=== PATIENT | female | born 1945 | race Caucasian/White ===

== ENCOUNTER 2020-11-20 02:50 | Emergency (ER) | payer MEDICARE, OTHER ==
[~2020-11-20 02:50] MED LIST: ALBUTEROL2.5 MG/3 M INH; AUGMENTIN 875-1 EACH PO; FLONASE 0.05% N16 GM; IPRAT-ALBUT 0.5-3 ML INH; PULMICORT0.25 MG/1 INH
[2020-11-20 04:19] LABS: HEMOGLOBIN 17.2 gm/dl (12.3-15.3); RED BLOOD COUNT 5.65 M/UL (4.00-5.10); WHITE BLOOD COUNT 9.6 K/UL (4.5-11.0)
[2020-11-20 04:40] LABS: BUN/CREATININE RATIO 25 (0-10)
== END 2020-11-20 08:00 | disposition left against medical advice (07) ==
LOC: ER1 02:50 → CDU 05:41
PROVIDERS: Physician Assistant
DX: J44.0 Chronic obstructive pulmonary disease with (acute) lower respiratory infection (principal); J18.9 Pneumonia, unspecified organism; J44.1 Chronic obstructive pulmonary disease with (acute) exacerbation; J96.21 Acute and chronic respiratory failure with hypoxia; Z20.822 Contact with and (suspected) exposure to COVID-19; Z90.49 Acquired absence of other specified parts of digestive tract; F17.210 Nicotine dependence, cigarettes, uncomplicated; Z88.1 Allergy status to other antibiotic agents; Z88.8 Allergy status to other drugs, medicaments and biological substances
CPT/HCPCS: 0240U; 71045; 80053; 81001; 82550; 82553; 82803; 83605; 83874; 84484; 85025; 87040; 93005; 94664; 94760; 96374; 99285

== ENCOUNTER 2020-12-02 15:00 | Inpatient (IN) | payer MEDICARE, OTHER ==
[~2020-12-02] VITALS: Ht 157.5 cm; Wt 66.7 kg
[2020-12-02 17:09] LABS: HEMOGLOBIN 17.4 gm/dl (12.3-15.3); RED BLOOD COUNT 5.72 M/UL (4.00-5.10); WHITE BLOOD COUNT 8.1 K/UL (4.5-11.0)
[2020-12-02 18:25] LABS: BUN/CREATININE RATIO 23 (0-10)
[2020-12-02] MEDS ORDERED: ZINC30 MG PO (20:47)
[2020-12-02] MEDS ORDERED: VITAMIN D 40400 UNIT PO (20:47)
[2020-12-02] MEDS ORDERED: ASPIRIN81 MG PO (20:48)
[2020-12-03 04:43] LABS: HEMOGLOBIN 16.2 gm/dl (12.3-15.3); RED BLOOD COUNT 5.37 M/UL (4.00-5.10); WHITE BLOOD COUNT 8.1 K/UL (4.5-11.0)
[2020-12-03 05:14] LABS: BUN/CREATININE RATIO 28 (0-10)
[2020-12-04] MEDS ORDERED: FLONASE 0.05% N16 GM (09:16)
== END 2020-12-04 10:15 | disposition home or self-care (01) | DRG 189 ==
LOC: ER1 15:00 → M/S 18:38 → CDU 18:38 → M/S 19:41
PROVIDERS: Emergency Medicine; ADMIT Internal Medicine
DX: J96.21 Acute and chronic respiratory failure with hypoxia (principal); J44.1 Chronic obstructive pulmonary disease with (acute) exacerbation; J44.0 Chronic obstructive pulmonary disease with (acute) lower respiratory infection; F17.210 Nicotine dependence, cigarettes, uncomplicated; J20.9 Acute bronchitis, unspecified; J30.9 Allergic rhinitis, unspecified; I71.4 Abdominal aortic aneurysm, without rupture; Z20.822 Contact with and (suspected) exposure to COVID-19; Z90.49 Acquired absence of other specified parts of digestive tract
CPT/HCPCS: 36415; 36600; 71045; 80053; 82550; 82553; 82803; 83605; 83690; 83735; 83874; 83880; 84100; 84439; 84443; 84484; 85025; 85610; 85730; 87040; 93005; 94640; 94664; 94760; 99285; J1100; J1650; J7070; U0002

== ENCOUNTER 2021-03-01 18:43 | Emergency (ER) | payer MEDICARE, OTHER ==
[~2021-03-01 18:43] MED LIST changes: +ASPIRIN81 MG PO; +VITAMIN D 40400 UNIT PO; +ZINC30 MG PO
== END 2021-03-01 19:15 | disposition left against medical advice (07) ==
LOC: ER1 18:43
DX: Z53.21 Procedure and treatment not carried out due to patient leaving prior to being seen by health care provider (principal)

== ENCOUNTER 2021-04-25 11:38 | Inpatient (IN) | payer MEDICARE, OTHER ==
[~2021-04-25] VITALS: Ht 157.5 cm; Wt 65.3 kg
[~2021-04-25 11:38] MED LIST changes: -IPRAT-ALBUT 0.5-3 ML INH
[2021-04-25 12:57] LABS: HEMOGLOBIN 17.9 gm/dl (12.3-15.3); RED BLOOD COUNT 5.93 M/UL (4.00-5.10); WHITE BLOOD COUNT 8.3 K/UL (4.5-11.0)
[2021-04-25 13:19] LABS: BUN/CREATININE RATIO 15 (0-10)
--- NOTE | 2021-04-25 19:50 | NUR ---
CALLED DR TUCKER TO NOTIFY OF CONSULT. HE IS AWARE AND STATES HE WILL SEE PT.
[2021-04-25] MEDS ORDERED: IPRAT-ALBUT 0.5-3 ML NEB (20:24)
[2021-04-26 02:56] LABS: HEMOGLOBIN 16.6 gm/dl (12.3-15.3); RED BLOOD COUNT 5.58 M/UL (4.00-5.10); WHITE BLOOD COUNT 7.7 K/UL (4.5-11.0)
[2021-04-26 03:47] LABS: BUN/CREATININE RATIO 19 (0-10)
--- NOTE | 2021-04-26 08:54 | NUR ---
04/26/21 0812 PT REQUEST TO GO "OUTSIDE TO SMOKE" EXPLAINED RISKS OF SMOKING, ALSO REMINDED THAT PT CAME TO HOSPITAL WITH SOA, COPD AND PNA. PT IS ALERT/ORIENTED, VOICES UNDERSTANDING. EXPLAINED PT WOULD HAVE NO OXYGEN IT IS A FIRE RISK SMOKING WITH O2 ON. PT STATED SHE UNDERSTOOD ALL THE RISKS THAT WERE ASSOCIATED WITH SMOKING AND HER "BREATHING" PROBLEMS.
--- NOTE | 2021-04-26 09:08 | NUR ---
04/26/21 0908 PT OFF CADIAC MONITOR AND OXYGEN, STATES SHE IS GOING TO SMOKE. REMINDED AND RE-EDUCATED PT AND SON RISKS OF SMOKING ETC. PT STATES "I KNOW THE RISKS" SON STATED "I KNOW, WE HAVE DISCUSSED IT, BUT SHE WANTS TO GO SMOKE" EXPLAINED RISKS OF OXYGEN DECREASING, INCREASED SOA ETC. BOTH VOICES UNDERSTANDING. MD IS AWARE, TELEMETRY IS AWARE OF PT OFF MONITOR.
--- NOTE | 2021-04-26 11:35 | NUR ---
04/26/[address] TUCKER (PULMONOLOGY) NOTIFIED OF CONSULT. UPDATED ON PT STATUS ETC.
--- NOTE | 2021-04-26 12:57 | NUR ---
04/26/21 1257 PT GOING OUTSIDE TO SMOKE, EXPLAINED RISKS ONCE AGAIN. PATIENT IS ALERT/ORIENTED AND VOICES UNDERSTANDING OF RISKS. 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 SON [employer] AND IS AWARE OF RISKS WELL. BOTH VOICE UNDERSTANDING. MD IS AWARE OF NON COMPLIANCE.
[2021-04-27 03:53] LABS: BUN/CREATININE RATIO 26 (0-10)
--- NOTE | 2021-04-27 06:26 | NUR ---
PATIENT CALLED ME TO THE ROOM. STATES THAT SHE THINKS SHE IS HAVING AN ALLERGIC REACTION TO THE MERREM IV ABX. SHE STATES, " I JUST DONT FEEL GOOD AT ALL SOMETHING ISNT RIGHT. IM ITCHING ON MY BELLY AND MY HEAD FEELS WEIRD." VITALS ARE FOLLOWS. BP 138/91 HR 87 RR18 02 92%. NO VISIBLE RED STREAKS OR PROBLEMS NOTED WITH HER IV. STOPPED MERREM AND NOTIFIED DR PEACOCK. PT IS CURRENTLY REFUSING TO TAKE STEROIDS OR BENADRYL AND STATES, " I JUST WILL WAIT AND SEE IF THIS WEARS OFF AND I FEEL BETTER."
--- NOTE | 2021-04-27 09:07 | NUR ---
04/27/21 0840 PT OUT TO SMOKE, ONCE AGAIN EDUCATED PT ON RISKS OF SMOKING ETC. REMINDED AND RE-EDUCATED ON OXYGEN USE, SOA, COPD ETC. PT IS ALERT/ORIENTED, VOICES UNDERSTANDING. SON ALSO AT [employer] WHOM IS TRANSPORTING PT IN W/C TO SMOKE.
--- NOTE | 2021-04-27 09:09 | NUR ---
04/27/21 0909 PT SON STATED HE "TURNED MOM'S OXYGEN DOWN THIS MORNING" EXPLAINED TO PT AND SON THE IMPORTANCE OF NOT ADJUSTING MEDICAL EQUIPMENT, EXPLAINED THAT STAFF WOULD ADJUST OXYGEN SETTINGS PT TOLERATES. OXYGEN IS AT 6L/NC IT WAS ON AM ASSESSMENT.
--- NOTE | 2021-04-27 09:29 | NUR ---
04/27/21 0968 PT C/O NAUSEA AND POSSIBLE ALLERGIC REACTION TO MERREM, STATES SHE FEELS IF HER LIPS WERE SWOLLEN. PT ASSESSED, NO FACIAL EDEMA NOTED. PT WITH NO CHANGE IN RESP STATUS, REMAINS ON 4L/NC WITH O2 SAT 90 WHILE TALKING. PT NOTED TO HAVE NO RED/RASHY AREAS ON BODY. DOES HAVE A SMALL RED AREA TO ABD WHICH IS APPROX 2CM ROUND, NO RASH, NO HIVES ECT ELSEWHERE. PT STATES SHE HAD A HEADACHE, EXPLAINED THAT I WOULD NOTIFY THE PHYSICIAN AND GET HER SOMETHING. SHE QUICKLY DECLINED, STATES "NO, THATS OK, ITS EASING OFF NOW" EXPLAINED NAUSEA WAS A SE OF MOST ANTIBIOTICS, ALSO REMINDED THAT PT STATED SHE IS HAVING SINUS DRAINAGE AND THAT COULD BE CONTRIBUTING TO SOME NAUSEA WELL. NOTIFIED DR JOHNSON OF "POSSIBLE ALLERGIC REACTION" MERREM WAS PUT ON HOLD PER DR STRICKLAND. WILL FOLLOW UP WITH MD GRAHAM RODRIGUEZ AND NAUSEA.
--- NOTE | 2021-04-27 10:55 | NUR ---
04/27/21 1055 PATIENT LEAVING UNIT TO GO OUTSIDE AND SMOKE, PATIENT VOICES RISKS OF SMOKING AND RESP STATUS. PORTABLE TELE AND PULSE OX ON PT, EXPLAINED THAT IF THEY WERE TOO FAR FROM FACILITY THAT WE COULDN'T READ HR AND OXYGEN SAT. VOICES UNDERSTANDING. SON WITH PT, TRANSPORTING HER VIA W/C
--- NOTE | 2021-04-27 16:46 | NUR ---
04/27/21 1640 CALLED TO PT ROOM PER RT, PATIENT REQUESTING THAT MERREM BE STOPPED, STATES "IT HAS MADE MY SINUSES DRAIN INTO MY THROAT AND I AM SMOTHERING TO " PATIENT WITH OXYGEN OFF, O2 SENSOR UNPLUGGED. EXPLAINED THE IMPORTANCE OF WEARING HER OXYGEN, ONCE OXYGEN SAT MONITOR WAS PLUGGED BACK UP SATURATION WS 89%. NO CHANGE NOTED WITH RESP STATUS WITH ASSESSMENT. PATIENT CONT WITH COUGH, COARSE LUNG SOUNDS. MERREM STOPPED PER PT REQUEST. DR STRICKLAND NOTIFIED OF PT COMPLAINTS AND REQUEST TO STOP IV ABT. EXPLAINED THAT RES STATUS WAS UNCHANGED AND THAT PATIENT HAD REMOVED OXYGEN WHICH WAS REAPPLIED WITH CURRENT OXYGEN SAT AT 89% ON 4L/NC. PATIENT IS ALERT/ORIENTED, EDUCATED ON RISKS OF NOT USING OXYGEN, WELL IMPORTANCE OF ABT. VOICES UNDERSTANDING.
--- NOTE | 2021-04-27 16:56 | NUR ---
04/27/21 1657 PT OFF FLOOR TO SMOKE. NO FURTHER C/O SOA.
--- NOTE | 2021-04-28 00:18 | NUR ---
AT 2330 PT IV WENT BAD DUE TO INFILTRATION AND THE NURSE WENT TO RESTART THE IV AND THE FAMILY REFUSED TO LET HER BE STUCK. FAMILY REQUESTED HER NOT TO BE STUCK TIL IN THE MORNING. WAS MADE AWARE.
--- NOTE | 2021-04-28 00:21 | NUR ---
RESPIRATORY WENT IN TO DO A BREATHING TREATMENT AND THE FAMILY TOLD THE STATOR PLATE WASHER NOT TO DO THE BREATHING TREATMENT. RT SAID THE PT WAS NOT IN ANY DISTRESS AND WILL CHECK ON PT AT 0400 FOR THEIR NEXT TREATMENT.
--- NOTE | 2021-04-28 04:09 | NUR ---
AT 0330 I D/C HER IV DUE TO PAIN. I EXPLAINED TO HER THAT SHE NEEDED A NEW ONE FOR EMERGENCY PURPOSES AND SHE AND HER SON STATED THAT SHE WOULD WAIT TIL MORNING DUE TO THE FACT OF HER GETTING A MIDLINE PLACED. NO MORNING ANTIBIOTICS CAN BE GIVEN BECAUSE OF NO IV ACCESS AND SHE REFUSED THEM WELL. MD AGUILAR.
--- NOTE | 2021-04-28 04:12 | NUR ---
AT 0406 THE RT WENT IN TO GIVE A BREATHING TREATMENT TO THE PT AND THE SON REFUSED THE TREATMENT BY STATING ACCORDING TO THE RT THAT HE WANTS HER TO REST. RT STATES NO PT DISTRESS
[2021-04-28 07:12] LABS: BUN/CREATININE RATIO 23 (0-10)
--- NOTE | 2021-04-28 15:42 | NUR ---
20G X 10CM MIDLINE, RIGHT BRACHIAL VEIN. ASPIRATES AND FLUSHES WELL.
[2021-04-28] MEDS ORDERED: FLONASE 0.05% N16 GM (15:51)
[2021-04-28] MEDS ORDERED: DEXAMETHASONE0.5 M1 PO (15:51)
[2021-04-28] MEDS ORDERED: BUDESONIDE0.5 MG/2 M NEB (15:51)
--- NOTE | 2021-04-28 16:51 | NUR ---
REPORT CALL WAS [facility].SEVERAL MORE ATTEMPTS TO CALL REPORT HAVE BEEN MADE.
== END 2021-04-28 16:33 | disposition home health service (06) | DRG 193 ==
LOC: ER1 11:38 → MED SURG 4 14:10 → CDU 14:10 → PROG CARE 19:30 → MED SURG 4 04-27 21:40
PROVIDERS: Emergency Medicine; Internal Medicine Pulmonary Disease; Physician Assistant Medical; ADMIT Internal Medicine
DX: J18.9 Pneumonia, unspecified organism (principal); J96.21 Acute and chronic respiratory failure with hypoxia; Z20.822 Contact with and (suspected) exposure to COVID-19; J20.9 Acute bronchitis, unspecified; J43.9 Emphysema, unspecified; I71.4 Abdominal aortic aneurysm, without rupture; F17.210 Nicotine dependence, cigarettes, uncomplicated; Z88.1 Allergy status to other antibiotic agents; Z88.0 Allergy status to penicillin; Z90.49 Acquired absence of other specified parts of digestive tract; Z88.8 Allergy status to other drugs, medicaments and biological substances; Z99.81 Dependence on supplemental oxygen
CPT/HCPCS: 36415; 36600; 71045; 80048; 80053; 81001; 82550; 82553; 82803; 83605; 83735; 83874; 83880; 84439; 84443; 84484; 85025; 85027; 87040; 93005; 94640; 94664; 94760; 99285; C1751; J0696; J1650; J2185; J7040; J7070; U0002

== ENCOUNTER 2021-09-14 03:31 | Inpatient (IN) | payer MEDICARE, OTHER ==
[~2021-09-14] VITALS: Ht 157.5 cm; Wt 63.5 kg
[~2021-09-14 03:31] MED LIST changes: +BUDESONIDE0.5 MG/2 M NEB; +DEXAMETHASONE0.5 M1 PO; +IPRAT-ALBUT 0.5-3 ML NEB
[2021-09-14 04:20] LABS: HEMOGLOBIN 16.9 gm/dl (12.3-15.3); RED BLOOD COUNT 5.58 M/UL (4.00-5.10); WHITE BLOOD COUNT 10.3 K/UL (4.5-11.0)
[2021-09-14 04:52] LABS: BUN/CREATININE RATIO 26 (0-10)
[2021-09-14] MEDS ORDERED: VITAMIN D325 MCG PO (09:43)
[2021-09-14] MEDS ORDERED: ASPIRIN EC81 MG PO (09:44)
[2021-09-15 03:22] LABS: HEMOGLOBIN 16.5 gm/dl (12.3-15.3); RED BLOOD COUNT 5.47 M/UL (4.00-5.10); WHITE BLOOD COUNT 10.1 K/UL (4.5-11.0)
[2021-09-16 05:03] LABS: HEMOGLOBIN 16.3 gm/dl (12.3-15.3); RED BLOOD COUNT 5.48 M/UL (4.00-5.10); WHITE BLOOD COUNT 8.7 K/UL (4.5-11.0)
--- NOTE | 2021-09-16 10:10 | NUR ---
PATIENT HAS REFUSED HER SOLUMEDROL, MUCINEX, AND DOXYCYCLINE THIS MORNING, I TOLD FANY WHO SPOKE WITH HER ALSO AND SAID SHE WAS THEN AGREEING TO THESE MEDS. I WENT TO GIVE HER THESE MEDICATIONS ALONG WITH HER MEDROL DOSE PACK AND SHE AGAIN REFUSED THEM. SHE HAS BEEN OUTSIDE TO SMOKE TWICE THIS MORNING AND I HAD THE CONVERSATION WITH HER ABOUT SMOKING AND HOW IT WILL WORSEN HER BRONCHITIS AFTER THE FIRST TIME SHE WENT TO SMOKE.
[2021-09-16] MEDS ORDERED: HUMIBID LA TAB600 MG PO (15:07)
[2021-09-16] MEDS ORDERED: AVIDOXY100 MG PO (15:07)
[2021-09-16] MEDS ORDERED: PROTONIX 40 MG40 M1 PO (15:07)
--- NOTE | 2021-09-16 16:07 | NUR ---
PATIENT WAS READY TO DC HOME, SHE IS ON HOME O2 BUT DID NOT BRING A TANK WITH HER. I CALLED [employer] [facility] [employer] WHO CALLED HER O2 SUPPLIER IN [facility], THEY SAID THEY WOULD BRING HER A TANK. I INFORMED THE PATIENT SHE WOULD HAVE TO WAIT SHE COULD NOT GO THAT LONG WITHOUT HER OXYGEN.
== END 2021-09-16 16:50 | disposition home or self-care (01) | DRG 193 ==
LOC: ER1 03:31 → M/S 08:29 → CDU 08:29 → M/S 11:39
PROVIDERS: Physician Assistant; Physician Assistant Medical; Student in an Organized Health Care Education/Training Program; ADMIT Internal Medicine
DX: J18.9 Pneumonia, unspecified organism (principal); J96.21 Acute and chronic respiratory failure with hypoxia; J44.1 Chronic obstructive pulmonary disease with (acute) exacerbation; J44.0 Chronic obstructive pulmonary disease with (acute) lower respiratory infection; J98.11 Atelectasis; Z20.822 Contact with and (suspected) exposure to COVID-19; I71.4 Abdominal aortic aneurysm, without rupture; F17.210 Nicotine dependence, cigarettes, uncomplicated; I73.9 Peripheral vascular disease, unspecified; J40 Bronchitis, not specified as acute or chronic; Z71.6 Tobacco abuse counseling; Z79.01 Long term (current) use of anticoagulants; Z79.82 Long term (current) use of aspirin; Z90.49 Acquired absence of other specified parts of digestive tract; Z88.1 Allergy status to other antibiotic agents; Z88.0 Allergy status to penicillin; Z88.8 Allergy status to other drugs, medicaments and biological substances; Z99.81 Dependence on supplemental oxygen
CPT/HCPCS: 0240U; 36415; 36600; 71045; 80048; 80053; 82550; 82553; 82803; 83605; 83735; 84484; 85025; 85027; 85379; 87040; 93005; 94640; 94664; 94760; 96374; 96375; 99285; J1100; J2185; J2543; J2920; J7030; Q9967

== ENCOUNTER 2022-02-11 16:31 | Inpatient (IN) | payer MEDICARE, OTHER ==
[~2022-02-11] VITALS: Ht 154.9 cm; Wt 64.5 kg
[~2022-02-11 16:31] MED LIST changes: +ASPIRIN EC81 MG PO; +AVIDOXY100 MG PO; +COMBIVENT RESPIM4 GM INH; +HUMIBID LA TAB600 MG PO; +LEXAPRO10 MG PO; +PROTONIX 40 MG40 M1 PO; +VITAMIN D325 MCG PO
[2022-02-11 17:41] LABS: HEMOGLOBIN 17.7 gm/dl (12.3-15.3); RED BLOOD COUNT 5.83 M/UL (4.00-5.10); WHITE BLOOD COUNT 5.9 K/UL (4.5-11.0)
[2022-02-12 02:14] LABS: HEMOGLOBIN 16.7 gm/dl (12.3-15.3); RED BLOOD COUNT 5.56 M/UL (4.00-5.10); WHITE BLOOD COUNT 5.3 K/UL (4.5-11.0)
[2022-02-12] MEDS ORDERED: COMBIVENT RESPIM4 GM INH ×2 (10:34→18:24)
[2022-02-12] MEDS ORDERED: ONDANSETRON HCL4 MG PO (10:35)
[2022-02-12] MEDS ORDERED: VIBRAMYCIN100 MG PO (10:35)
[2022-02-12] MEDS ORDERED: FLAGYL 250 MG250 MG PO (10:36)
[2022-02-12] MEDS ORDERED: DEXAMETHASONE1 MG PO ×2 (10:36→18:24)
[2022-02-12] MEDS ORDERED: IPRAT-ALBUT 0.5-3 ML INH (10:37)
[2022-02-12] MEDS ORDERED: PROTONIX 40 MG40 M1 PO (10:37)
[2022-02-12] MEDS ORDERED: LEVALBUTER1.25 MG/3 NEB (18:24)
[2022-02-12] MEDS ORDERED: PROVENTIL HFA6.7 GM INH (18:26)
== END 2022-02-12 19:15 | disposition left against medical advice (07) | DRG 177 ==
LOC: ER1 16:31 → CDU 17:53 → PROG CARE 17:53
PROVIDERS: Physician Assistant; Physician Assistant Medical; ADMIT Internal Medicine
PROC: 3E0333Z Introduction of Anti-inflammatory into Peripheral Vein, Percutaneous Approach (ICD-10-PCS; principal; 2022-02-11)
DX: U07.1 COVID-19 (principal); J12.82 Pneumonia due to coronavirus disease 2019; J96.21 Acute and chronic respiratory failure with hypoxia; J44.0 Chronic obstructive pulmonary disease with (acute) lower respiratory infection; J44.1 Chronic obstructive pulmonary disease with (acute) exacerbation; I73.9 Peripheral vascular disease, unspecified; F17.210 Nicotine dependence, cigarettes, uncomplicated; I71.4 Abdominal aortic aneurysm, without rupture; Z66 Do not resuscitate; Z90.49 Acquired absence of other specified parts of digestive tract; Z86.16 Personal history of COVID-19; Z88.1 Allergy status to other antibiotic agents; Z88.8 Allergy status to other drugs, medicaments and biological substances; Z88.6 Allergy status to analgesic agent
CPT/HCPCS: 36415; 36600; 71045; 74018; 80053; 82550; 82553; 82803; 83605; 83880; 84484; 85025; 87040; 93005; 94640; 94664; 94760; 96365; 99285; J1650; J2185; Q9967; U0002